=== PATIENT | male | born 1935 | race Two or more races ===

== ENCOUNTER 2024-04-25 12:23 | Inpatient (IN) | payer OTHER ==
[2024-04-25 13:25] LABS: VENOUS BASE EXCESS -1.1 mmol/L (-2-2); VENOUS O2 SATURATION 53.9 % (70-80); VENOUS PCO2 42.7 mmHg (38-52); VENOUS PH 7.371 (7.310-7.410)
[2024-04-25] MEDS ORDERED: ONDANSETRON 4 MG/2 ML VIAL ONE (13:25)
[2024-04-25 13:32] LABS: HEMOGLOBIN 9.1 GM/dL (11.7-16.9); MCH 29.9 pg (25.7-33.7); MCHC 32.4 g/dl (32.0-35.9); MEAN CELL VOLUME 92.3 fl (80-96); MEAN PLT VOLUME 7.7 fl (7.5-11.1); PLATELET COUNT 368 10^3/uL (134-434); RBC 3.04 M/mm3 (4.00-5.60); RDW 19.4 % (11.9-15.9); WHITE BLOOD COUNT 15.1 K/mm3 (4.0-10.0)
[2024-04-25] MEDS: SODIUM CHLORIDE 0.9% 500 ML INFUS.BAG IV ONE (13:32)
[2024-04-25] MEDS: ONDANSETRON 4 MG/2 ML VIAL IVPB ONE (13:32)
[2024-04-25 13:51] LABS: POTASSIUM 4.5 mmol/L (3.5-5.1)
[2024-04-25 13:54] LABS: CALCIUM 8.9 mg/dL (8.5-10.1)
[2024-04-25 13:55] LABS: ALBUMIN 4.1 g/dl (3.4-5.0); BLOOD UREA NITROGEN 48.1 mg/dL (7-18)
[2024-04-25 13:57] LABS: CREATININE 1.6 mg/dL (0.55-1.3)
[2024-04-25] MEDS ORDERED: CEFEPIME 1 GM/100 ML BAG IVPB ONE (13:59)
[2024-04-25 14:00] LABS: BILIRUBIN,TOTAL 0.7 mg/dL (0.2-1); TOT PROT 6.3 g/dl (6.4-8.2)
[2024-04-25] MEDS: CEFEPIME HCL 1 GM VIAL (RESTRICTED TO ID) IVPB ONE (14:04)
[2024-04-25 14:33] LABS: ANISOCYTOSIS 1+; MACROCYTOSIS 0
[2024-04-25] MEDS ORDERED: SULFAMETHOXAZOLE 80 MG/TRIMETHOPRIM 16 MG/ML VIAL IVPB ONE (17:03)
[2024-04-25] MEDS ORDERED: ACETAMINOPHEN 1000 MG/100 ML BAG IVPB PRN (17:17)
[2024-04-25] MEDS ORDERED: PANTOPRAZOLE SODIUM 40 MG VIAL ONE (17:39)
[2024-04-25] MEDS: PANTOPRAZOLE SODIUM 40 MG VIAL IVPUSH SCH (17:47)
[2024-04-25] MEDS: D5-1/2NS+10 MEQ KCL - 10 MEQ/1,000 ML INFUS.BAG IV SCH ×3 (17:47→23:00)
[2024-04-25] MEDS: SULFAMETHOXAZOLE/TRIMETHOPRIM 300 MG in DEXTROSE 5%-WATER - 500 ML IVPB ONE (19:12)
[2024-04-25] MEDS ORDERED: ONDANSETRON 4 MG/2 ML VIAL IVPUSH PRN (19:32)
[2024-04-25] MEDS ORDERED: HEPARIN NA (PORCINE) 5,000 UNITS/ML 1ML VIAL ONE (22:57)
[2024-04-25] MEDS: HEPARIN NA (PORCINE) 5,000 UNITS/ML 1ML VIAL SQ SCH (23:01)
[2024-04-26] MEDS ORDERED: HEPARIN NA (PORCINE) 5,000 UNITS/ML 1ML VIAL ONE (06:28)
[2024-04-26 07:19] LABS: BASO % 0.2 % (0-2.0); EOS % 1.2 % (0-4.5); HEMATOCRIT 24.7 % (35.4-49); HEMOGLOBIN 7.9 GM/dL (11.7-16.9); LYMPH % 7.9 % (8-40); MCH 29.9 pg (25.7-33.7); MCHC 32.1 g/dl (32.0-35.9); MEAN PLT VOLUME 7.7 fl (7.5-11.1); MONO % 5.3 % (3.8-10.2); NEUT % 85.4 % (42.8-82.8); PLATELET COUNT 304 10^3/uL (134-434); RBC 2.65 M/mm3 (4.00-5.60); RDW 19.8 % (11.9-15.9); WHITE BLOOD COUNT 16.4 K/mm3 (4.0-10.0)
[2024-04-26 07:35] LABS: POTASSIUM 4.3 mmol/L (3.5-5.1)
[2024-04-26 07:37] LABS: ALBUMIN 3.5 g/dl (3.4-5.0); CALCIUM 8.1 mg/dL (8.5-10.1)
[2024-04-26 07:41] LABS: CREATININE 1.6 mg/dL (0.55-1.3)
[2024-04-26 07:42] LABS: BILIRUBIN,TOTAL 0.5 mg/dL (0.2-1); TOT PROT 5.5 g/dl (6.4-8.2)
[2024-04-26] MEDS ORDERED: PANTOPRAZOLE SODIUM 40 MG VIAL ONE (10:54)
[2024-04-26] MEDS: IRON SUCROSE INJECTION 300 MG in SODIUM CHLORIDE 250 ML IVPB ONE (11:03)
[2024-04-26] MEDS ORDERED: CEFEPIME HCL 1 GM VIAL (RESTRICTED TO ID) IVPB SCH (11:15)
[2024-04-26] MEDS ORDERED: CEFEPIME 1 GM in DEXTROSE 5%-WATER 100 ML IVPB SCH (11:15)
[2024-04-26] MEDS: D5-1/2NS+10 MEQ KCL - 10 MEQ/1,000 ML INFUS.BAG IV SCH ×2 (12:45→18:37)
[2024-04-26] MEDS: PIPERACILLIN/TAZOB 3.375 GM 3.375 GM in DEXTROSE 5%-WATER - 50 ML IVPB SCH (12:45)
[2024-04-26] MEDS ORDERED: AZITHROMYCIN IVPB 500 MG/250 ML BAG IVPB ONE (13:03)
[2024-04-26] MEDS ORDERED: PIPERACILLIN/TAZOB 3.375 GM 3.375 GM/50 ML BAG IVPB ONE (13:03)
[2024-04-26] MEDS: DAPSONE 100 MG TABLET PO SCH (13:22)
[2024-04-26] MEDS: AZITHROMYCIN IVPB 500 MG/250 ML BAG IVPB ONE (13:22)
[2024-04-26 15:47] VITALS: BMI 25.6
[2024-04-27] MEDS: IRON SUCROSE INJECTION 300 MG in SODIUM CHLORIDE 250 ML IVPB ONE (09:17)
[2024-04-27 09:19] LABS: BASO % 0.3 % (0-2.0); HEMATOCRIT 26.3 % (35.4-49); HEMOGLOBIN 8.4 GM/dL (11.7-16.9); LYMPH % 13.6 % (8-40); MCHC 32.1 g/dl (32.0-35.9); MEAN CELL VOLUME 93.4 fl (80-96); MEAN PLT VOLUME 7.8 fl (7.5-11.1); MONO % 8.7 % (3.8-10.2); NEUT % 74.4 % (42.8-82.8); PLATELET COUNT 325 10^3/uL (134-434); RBC 2.82 M/mm3 (4.00-5.60); RDW 19.6 % (11.9-15.9); WHITE BLOOD COUNT 10.7 K/mm3 (4.0-10.0)
[2024-04-27 09:28] LABS: POTASSIUM 4.2 mmol/L (3.5-5.1)
[2024-04-27 09:29] LABS: CALCIUM 8.1 mg/dL (8.5-10.1)
[2024-04-27 09:30] LABS: BLOOD UREA NITROGEN 27.5 mg/dL (7-18)
[2024-04-27 09:33] LABS: CREATININE 1.9 mg/dL (0.55-1.3)
[2024-04-27] MEDS: LOSARTAN POTASSIUM 50 MG TABLET PO SCH (10:44)
[2024-04-27] MEDS: PANTOPRAZOLE 40 MG TABLET PO SCH (10:44)
[2024-04-27] MEDS: amLODIPine BESYLATE 10 MG TABLET (FP) PO SCH (10:44)
[2024-04-27] MEDS: CHLORTHALIDONE 25 MG TABLET PO SCH (11:18)
[2024-04-27] MEDS: AZITHROMYCIN IVPB 500 MG/250 ML BAG IVPB SCH (15:42)
[2024-04-27] MEDS: TAMSULOSIN HCL 0.4 MG CAP PO SCH (22:37)
[2024-04-28 08:55] LABS: BASO % 0.4 % (0-2.0); EOS % 3.6 % (0-4.5); HEMATOCRIT 25.3 % (35.4-49); HEMOGLOBIN 8.1 GM/dL (11.7-16.9); LYMPH % 19.4 % (8-40); MCH 29.8 pg (25.7-33.7); MCHC 32.2 g/dl (32.0-35.9); MEAN CELL VOLUME 92.7 fl (80-96); MEAN PLT VOLUME 7.8 fl (7.5-11.1); MONO % 11.8 % (3.8-10.2); NEUT % 64.8 % (42.8-82.8); PLATELET COUNT 305 10^3/uL (134-434); RBC 2.73 M/mm3 (4.00-5.60); RDW 20.1 % (11.9-15.9); WHITE BLOOD COUNT 6.7 K/mm3 (4.0-10.0)
[2024-04-28 09:09] LABS: POTASSIUM 4.4 mmol/L (3.5-5.1)
[2024-04-28 09:13] LABS: CALCIUM 7.9 mg/dL (8.5-10.1)
[2024-04-28 09:14] LABS: BLOOD UREA NITROGEN 28.2 mg/dL (7-18)
[2024-04-28 09:17] LABS: CREATININE 1.8 mg/dL (0.55-1.3)
[2024-04-28] MEDS: ACETAMINOPHEN 325 MG TABLET (FP) PO PRN (09:42)
[2024-04-28] MEDS: EPOETIN ALFA-EPBX 20,000 UNIT/ML VIAL SQ ONE (11:55)
[2024-04-28] MEDS: IRON SUCROSE INJECTION 300 MG in SODIUM CHLORIDE 235 ML IVPB ONE (13:16)
[2024-04-28 20:41] VITALS: RESP 18
[2024-04-28] MEDS ORDERED: HEPARIN NA (PORCINE) 5,000 UNITS/ML 1ML VIAL SQ SCH (22:00)
[2024-04-29 09:37] LABS: HEMATOCRIT 28.7 % (35.4-49); HEMOGLOBIN 9.1 GM/dL (11.7-16.9); MCH 29.6 pg (25.7-33.7); MCHC 31.9 g/dl (32.0-35.9); MEAN CELL VOLUME 92.8 fl (80-96); MEAN PLT VOLUME 7.9 fl (7.5-11.1); PLATELET COUNT 350 10^3/uL (134-434); RBC 3.09 M/mm3 (4.00-5.60); RDW 20.2 % (11.9-15.9); WHITE BLOOD COUNT 8.2 K/mm3 (4.0-10.0)
[2024-04-29 09:58] LABS: POTASSIUM 4.6 mmol/L (3.5-5.1)
[2024-04-29 10:02] LABS: CALCIUM 8.6 mg/dL (8.5-10.1)
[2024-04-29 10:03] LABS: BLOOD UREA NITROGEN 32.3 mg/dL (7-18)
[2024-04-29 10:06] LABS: CREATININE 1.9 mg/dL (0.55-1.3)
[2024-04-29 11:06] LABS: ANISOCYTOSIS 0; MACROCYTOSIS 0
[2024-04-30 08:43] VITALS: BP 132/60; PULSE 77; TEMP 98.3
[2024-04-30] MEDS ORDERED: AMOX TR/POT CLAV 875MG/125MG TABLETS (FP) PO SCH (09:54)
[2024-04-30 11:13] LABS: HEMATOCRIT 27.3 % (35.4-49); HEMOGLOBIN 8.8 GM/dL (11.7-16.9); MCH 30.3 pg (25.7-33.7); MCHC 32.2 g/dl (32.0-35.9); MEAN CELL VOLUME 94.3 fl (80-96); MEAN PLT VOLUME 7.8 fl (7.5-11.1); PLATELET COUNT 330 10^3/uL (134-434); RDW 19.8 % (11.9-15.9); WHITE BLOOD COUNT 8.5 K/mm3 (4.0-10.0)
[2024-04-30 11:30] LABS: POTASSIUM 4.9 mmol/L (3.5-5.1)
[2024-04-30 11:36] LABS: CALCIUM 8.2 mg/dL (8.5-10.1)
[2024-04-30 11:37] LABS: BLOOD UREA NITROGEN 32.4 mg/dL (7-18)
[2024-04-30 11:40] LABS: CREATININE 1.9 mg/dL (0.55-1.3)
[2024-04-30 12:40] LABS: ANISOCYTOSIS 1+; MACROCYTOSIS 1+
[2024-05-01] MEDS ORDERED: AMOX TR/POT CLAV 875MG/125MG TABLETS (FP) PO SCH (08:00)
[2024-05-01] MEDS ORDERED: AMOX TR/POT CLAV 500MG/125MG TABLETS (FP) PO SCH (08:00)
== END 2024-04-30 15:00 | disposition home or self-care (01) | DRG 194 ==
LOC: JER 12:23 → JERBED 14:20 → J6S 04-26 14:24
PROVIDERS: ADMIT Internal Medicine; ATTEND Internal Medicine
DX: J18.9 Pneumonia, unspecified organism (principal); C90.00 Multiple myeloma not having achieved remission; I10 Essential (primary) hypertension; K21.9 Gastro-esophageal reflux disease without esophagitis; E78.5 Hyperlipidemia, unspecified; D50.9 Iron deficiency anemia, unspecified
CPT/HCPCS: 0241U-QW; 36415; 71045-TC-FY; 71275-TC; 80048; 80053; 82272; 82728; 82803; 83540; 83550; 83615; 84484; 85025; 85651; 86140; 87040; 87070; 87205; 87633; 87899; 93005; 93010; 97116-GP; 97162-GP; 99285-25; J1644; J1756; Q9967

== ENCOUNTER 2024-07-14 14:10 | Emergency (ER) | payer OTHER ==
[2024-07-14 14:21] VITALS: RESP 18; BMI 25.0
[2024-07-14 16:34] LABS: VENOUS BASE EXCESS 0.6 mmol/L (-2-2); VENOUS O2 SATURATION 30.2 % (70-80); VENOUS PCO2 55.6 mmHg (38-52); VENOUS PH 7.311 (7.310-7.410)
[2024-07-14 16:36] LABS: BASO % 0.4 % (0-2.0); EOS % 2.1 % (0-4.5); HEMATOCRIT 30.9 % (35.4-49); HEMOGLOBIN 10.4 GM/dL (11.7-16.9); LYMPH % 24.6 % (8-40); MCH 35.2 pg (25.7-33.7); MCHC 33.5 g/dl (32.0-35.9); MEAN CELL VOLUME 105.1 fl (80-96); MEAN PLT VOLUME 7.4 fl (7.5-11.1); MONO % 13.4 % (3.8-10.2); NEUT % 59.5 % (42.8-82.8); PLATELET COUNT 209 10^3/uL (134-434); RBC 2.94 M/mm3 (4.00-5.60); RDW 16.8 % (11.9-15.9)
[2024-07-14] MEDS ORDERED: ACETAMINOPHEN INJECTION 100 ML ONE (16:42)
[2024-07-14] MEDS: ACETAMINOPHEN 1000 MG/100 ML BAG IVPB ONE (16:47)
[2024-07-14 16:51] LABS: INR 1.04 (0.83-1.09); PROTHROMBIN TIME (PATIENT) 11.9 SEC (9.7-13.0)
[2024-07-14 16:55] LABS: ACTIVATED PTT 36.1 SECONDS (25.2-36.5)
[2024-07-14 17:03] LABS: POTASSIUM 4.9 mmol/L (3.5-5.1)
[2024-07-14 17:05] LABS: CALCIUM 9.1 mg/dL (8.5-10.1)
[2024-07-14 17:06] LABS: ALBUMIN 4.2 g/dl (3.4-5.0); BLOOD UREA NITROGEN 36.2 mg/dL (7-18)
[2024-07-14 17:09] LABS: CREATININE 1.5 mg/dL (0.55-1.3)
[2024-07-14 17:10] LABS: BILIRUBIN,TOTAL 0.4 mg/dL (0.2-1); TOT PROT 6.5 g/dl (6.4-8.2)
[2024-07-14 19:10] VITALS: BP 160/76; PULSE 70; TEMP 97.7
== END 2024-07-14 20:24 | disposition home or self-care (01) ==
LOC: JER 14:10
PROC: 3E033NZ Introduction of Analgesics, Hypnotics, Sedatives into Peripheral Vein, Percutaneous Approach (ICD-10-PCS; principal; 2024-07-14)
DX: R05.9 Cough, unspecified (principal); R07.81 Pleurodynia; Z20.822 Contact with and (suspected) exposure to COVID-19
CPT/HCPCS: 0241U-QW; 36415; 71045-TC-FY; 71275-TC; 80053; 82803; 84484; 85025; 85610; 85730; 93005; 93010; 96374; 99285-25; J0131; Q9967